=== PATIENT | male | born 1970 | race Caucasian/White ===

== ENCOUNTER 2019-08-05 10:40 | Emergency (ER) | payer BC ==
--- NOTE | 2019-08-05 11:38 | EDM.PDOC ---
ED HPI GENERAL MEDICAL PROBLEM - General Chief Complaint: Lower Extremity Injury/Pain Stated Complaint: R ANKLE/FOOT INJURY Time Seen by Provider: 08/05/19 11:31 Source of Information: Reports: Patient, Family History Limitations: Reports: No Limitations - History of Present Illness INITIAL COMMENTS - FREE TEXT/NARRATIVE: Alert 48 yo female presents to ER after right lateral ankle pain and swelling. Patient rolled his ankle this am around 8:45 am due to slip fall, mechanical injury. No lightheadedness, dizziness, headache, chest pain or weakness before fall. Patient had a tree land on the top of his foot last weekend while prepping in[place]. Patient was on his way to [place] this am. Patient has been walking but noted pain with ambulation. Patient continued his activity last weekend after foot injury. Patient has a known previous traumatic amputation of distal great, second and third digits years ago. Patient took Ibuprofen 800mg around 9:30 am due to pain. Right Ankle Pain Score (Numeric/FACES): 4 - Related Data Allergies Allergy/AdvReac Type Severity Reaction Status Date / Time No Known Allergies Allergy Verified 08/05/19 11:22 Home Meds: Home Meds . [Unable to Verify Home Med List] 08/05/19 [History] Past Medical History Cardiovascular History: Reports: CAD, High Cholesterol, Hypertension, NM Genitourinary History: Reports: Renal Calculus Musculoskeletal History: Reports: Fracture - Past Surgical History Cardiovascular Surgical History: Reports: Coronary Artery Stent, Percutaneous Transluminal Angioplasty GI Surgical History: Reports: Appendectomy Social & Family History - Tobacco Use Smoking Status *Q: Current Every Day Smoker Years of Tobacco use: 25 Packs/Tins Daily: 0.5 - Caffeine Use Caffeine Use: Reports: Soda - Recreational Drug Use Recreational Drug Use: No Review of Systems - Review of Systems Review Of Systems: ROS reveals no pertinent complaints other than HPI. ED EXAM, GENERAL - Physical Exam Exam: See Below Exam Limited By: No Limitations General Appearance: Alert, WD/WN, Mild Distress Eye Exam: Bilateral Eye: EOMI Ears: Normal External Exam, Hearing Grossly Normal Nose: Normal Inspection, No Blood Throat/Mouth: Normal Voice, No Airway Compromise Head: Atraumatic, Normocephalic Neck: Normal Inspection, Full Range of Motion Respiratory/Chest: No Respiratory Distress Cardiovascular: Normal Peripheral Pulses Peripheral Pulses: 4+: Posterior Tibial (L), Posterior Tibial (R), Dorsalis Pedis (L), Dorsalis Pedis (R) GI/Abdominal: Soft, Non-Tender (Male) Exam: Deferred Rectal (Males) Exam: Deferred Extremities: Joint Swelling (right ankle swelling with pain to palpation of the lateral malleolus, No proximal fibula or 5th MT pain to palpation. Bruising noted dorsum of foot at level of metatarsal heads digit 2-4 with obvious scarring form previous traumatic amputation ) Neurological: Alert, Oriented, CN II-XII Intact, Normal Cognition, Normal Gait, Normal Reflexes, No Motor/Sensory Deficits Psychiatric: Normal Affect, Normal Mood Skin Exam: Warm, Dry, Intact, Normal Color, No Rash Lymphatic: No Adenopathy Course - Vital Signs Last Recorded V/S: Last Vital Signs Temp 36.3 C 08/05/19 11:27 Pulse 76 08/05/19 11:27 Resp 17 08/05/19 11:27 BP 135/80 08/05/19 11:27 Pulse Ox 96 08/05/19 11:27 - Orders/Labs/Meds Orders: Active Orders 24 hr Category Date Time Status Ankle Min 3V Rt [CR] Stat Exams 08/05/19 11:36 Ordered Foot Comp Min 3V Rt [CR] Stat Exams 08/05/19 11:36 Ordered - Radiology Interpretation Free Text/Narrative:: Right Ankle XR: Soft tissue swelling, possible very subtle nondisplaced distal fibula fracture. No dislocation or obvious fracture noted. Right Foot XR: Soft tissue swelling. Obvious previous amputations, No acute fracture of distal 2-4 metatarsals noted. Images read by myself during ER visit. Radiology report pending. Departure - Departure Time of Disposition: 11:50 Disposition: Home, Self-Care 01 Clinical Impression: Right ankle strain, Contusion of foot, right - Discharge Information Instructions: Ankle Sprain, Muscle Strain, Cryotherapy, RICE for Routine Care of Injuries Referrals: PCP,None [Primary Care Provider] - (Orthopedist of choice) Forms: ED Department Discharge Additional Instructions: 1. Ice 15-20 minutes every 4-6 hours. Elevated as much as possible. 2. Ibuprofen 600-800mg every 6-8 hours with food for pain and swelling. 3. Tylenol 500-1000mg every 6-8 hours for mild pain caution with alcohol due to liver use. 4. Call PCP for recheck in 1-2 if not improving or Consider Orthopedic evaluation. 5. RICE,Ritchie Wrap and (Cam Walk per comfort) but may continue to ambulate on flat surfaces or with immobilization. - Problem List & Annotations (1) Contusion of foot, right SNOMED Code(s): 15601818 Code(s): S90.31XA - CONTUSION OF RIGHT FOOT, INITIAL ENCOUNTER Status: Acute Current Visit: Yes (2) Right ankle strain SNOMED Code(s): 560562190, 062651688 Code(s): S96.911A - STRAIN OF UNSP MSL/TND AT ANK/FT LEVEL, RIGHT FOOT, INIT Status: Acute Current Visit: Yes - My Orders Last 24 Hours: My Active Orders 08/05/19 11:36 Ankle Min 3V Rt [CR] Stat Foot Comp Min 3V Rt [CR] Stat - Assessment/Plan Last 24 Hours: My Active Orders 08/05/19 11:36 Ankle Min 3V Rt [CR] Stat Foot Comp Min 3V Rt [CR] Stat
--- NOTE | 2019-08-05 12:44 | CRLCR ---
HISTORY: Lateral ankle pain. COMPARISON: None available. FINDINGS: AP, lateral and oblique views of the right ankle were obtained for a total of three views. There is no sign of fracture or dislocation. The ankle mortise is intact. The talar dome is intact. There is no sign of a joint effusion. There is moderate swelling over the lateral malleolus with no evidence of an underlying fracture. The soft tissues are otherwise normal in appearance and there is no sign of any radiopaque foreign body. Multiple rounded ossifications are seen posterior to the talus, probably multiple unfused accessory ossification centers. No degenerative changes are seen IMPRESSION: No sign of acute osseous injury. Moderate lateral soft tissue swelling. Dictated by Trenton Hutchinson MD @ Aug 05 2019 12:41PM Signed by Dr. Trenton Hutchinson @ Aug 05 2019 12:43PM
--- NOTE | 2019-08-05 12:48 | CRLCR ---
HISTORY: Bruising of the forefoot in the area of the 2nd through 4th metatarsal heads. Pain in the great toe, 2nd and 3rd toe. Amputations years ago. COMPARISON: None available. FINDINGS: The right foot is examined with AP, lateral, and oblique views. There has been amputation of the great toe at the level of the base of the distal phalanx. There has been amputation of the 2nd and 3rd toes at the level of the MTP joints. There is no sign of any osseous destruction or lucency to suggest osteomyelitis or osteonecrosis in these regions. The overlying soft tissues are normal in appearance with no sign of any gas or foreign body. There is no sign of fracture or dislocation. 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 No additional degenerative changes are seen. There is mild diffuse soft tissue swelling of the foot, nonspecific. There is no sign of any gas in the soft tissues or radiopaque foreign body. As noted on the accompanying ankle exam, there is moderate lateral ankle swelling. IMPRESSION: Mild diffuse soft tissue swelling of the foot and moderate swelling of the lateral ankle. No sign of any acute osseous injury to the 1st through 3rd toes. Amputations of the 1st through 3rd toes as described above. 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 Trenton Hutchinson @ Aug 05 2019 12:46PM
== END 2019-08-05 12:17 | disposition home or self-care (01) ==
LOC: JP.ED 10:40
DX: S96.911A Strain of unspecified muscle and tendon at ankle and foot level, right foot, initial encounter (principal); S90.31XA Contusion of right foot, initial encounter; I10 Essential (primary) hypertension; I25.2 Old myocardial infarction; F17.210 Nicotine dependence, cigarettes, uncomplicated; W01.0XXA Fall on same level from slipping, tripping and stumbling without subsequent striking against object, initial encounter
CPT/HCPCS: 73610-RT; 73630-RT; 99283-25